=== PATIENT | male | born 1950 | race Caucasian/White ===

== ENCOUNTER 2019-10-20 10:37 | Day surgery (SDC) | payer OTHER ==
[2019-10-19 15:46] VITALS: BMI 18.7
[2019-10-20] MEDS ORDERED: AFRIN NASAL MIST 15 ML BOT ONE (12:12)
[2019-10-20] MEDS ORDERED: Lidocaine 1% w/Epinephrine 1:100K 20 ML VIAL ONE (12:23)
[2019-10-20] MEDS ORDERED: EPINEPHrine 1 MG/ML AMP ONE (12:23)
[2019-10-20] MEDS ORDERED: Fentanyl 100 MCG/2 ML VIAL ONE (12:29)
[2019-10-20 12:41] LABS: Hemoglobin 14.3 g/dL (14.0-18.0); Platelet Count 242 thou/uL (130-400)
[2019-10-20 13:01] LABS: Anion Gap 12 mmol/L (10-20); BUN (Urea Nitrogen) 17 mg/dL (8.4-25.7); Calc. Creatinine Clearance 75 mL/min (70-130); Calcium 9.4 mg/dL (7.8-10.44); Carbon Dioxide 28 mmol/L (23-31); Chloride 103 mmol/L (98-107); Estimated GFR-MDRD 84; Glucose 91 mg/dL (80-115); Sodium 139 mmol/L (136-145)
[2019-10-20] MEDS ORDERED: PROPOFOL 200 MG/20 ML VIAL ONE (14:47)
[2019-10-20] MEDS ORDERED: Lidocaine 1% PF 5 ML VIAL ONE (14:47)
[2019-10-20] MEDS ORDERED: ePHEDrine/0.9% NaCl/PF SYRINGE 50 mg/10 ml ONE (14:47)
[2019-10-20] MEDS ORDERED: Ondansetron PF 4 MG/2 ML Vial ONE (14:47)
[2019-10-20] MEDS ORDERED: Dexamethasone 20 MG/5 ML VIAL ONE (14:47)
[2019-10-20] MEDS ORDERED: HYDROcodone/Acetaminophen 5/325 mg Tablet ONE (14:48)
--- NOTE | 2019-10-21 09:53 | OP ---
DATE OF PROCEDURE: 10/20/2019 PREOPERATIVE DIAGNOSES: 1. Chronic maxillary sinusitis. 2. Chronic right frontal sinusitis. 3. Right frontal ethmoid mucocele. POSTOPERATIVE DIAGNOSES: 1. Chronic maxillary sinusitis. 2. Chronic right frontal sinusitis. 3. Right frontal ethmoid mucocele. PROCEDURES PERFORMED: 1. Nasal endoscopy with right maxillary antrostomy. 2. Nasal endoscopy with modified Loth[place] procedure, CPT code 68366. 3. Bilateral nasal endoscopy insertion of steroid-releasing frontal sinus stent. 4. Stereotactic image guidance using the Preact system. PROCEDURE IN DETAIL: After consent was obtained, the patient was identified, brought to the operating room and placed on the operating table in supine position. General endotracheal anesthesia was obtained. The patient was placed in supine position and prepared for surgery. Topical decongestion was achieved with infiltrating 1% lidocaine and 1:100,000 epinephrine, and topical adrenaline was placed in the anticipated site of incision and we intended the surgery. We then removed the topical adrenaline and proceeded with outfracturing the residual middle turbinate on the right and connected the natural os with the previous maxillary antrostomy. This was done to address recirculation problems and thickened mucus. 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 CT scan that actually revealed 2 separate sinuses opening of the right side and each of them had scarred down and was obstructed. Under stereotactic imaging guidance, we identified the opening to the more medial of the sinuses. The bone was quite thickened, and a sumeet-curved drill was used to take down the bony septa between the nasal cavity and the frontal sinus. This was then allowed for outpouring of the purulent contents. Once that septum was identified, we were then able to use the drill to take down the bony septa between the lateral frontal sinus, which was also obstructed. This then marsupialized the lateral sinus into the medial sinus and then ultimately into the nose. The efforts were made not to leave any shrouds of mucosa or bony debris, and a steroid-secreting stent was placed in the sinus cavity to prevent postoperative synechiae. Cultures were obtained. The patient was awakened, extubated, and taken to recovery room in a stable condition prior to discharge home. Job ID: [id number]
--- NOTE | 2019-10-25 10:27 | EKG ---
Test Reason : PREOP Blood Pressure : / mmHG Vent. Rate : 054 BPM Atrial Rate : 054 BPM P-R Int : 164 ms QRS Dur : 108 ms QT Int : 430 ms P-R-T Axes : 085 099 077 degrees QTc Int : 407 ms Sinus bradycardia Rightward axis Borderline ECG No previous ECGs available Confirmed by KIANA BARDALES (2) on 10/25/2019 10:26:42 AM Referred By: SINGH Confirmed By:KIANA BARDALES
== END 2019-10-20 15:56 | disposition home or self-care (01) ==
LOC: SDC 10:37
PROVIDERS: ATTEND Specialist
PROC: 09BS8ZZ Excision of Right Frontal Sinus, Via Natural or Artificial Opening Endoscopic (ICD-10-PCS; principal; 2019-10-20)
PROC: 099S8ZZ Drainage of Right Frontal Sinus, Via Natural or Artificial Opening Endoscopic (ICD-10-PCS; principal; 2019-10-20)
PROC: 099Q8ZZ Drainage of Right Maxillary Sinus, Via Natural or Artificial Opening Endoscopic (ICD-10-PCS; principal; 2019-10-20)
PROC: 8E09XBZ Computer Assisted Procedure of Head and Neck Region (ICD-10-PCS; principal; 2019-10-20)
DX: J32.8 Other chronic sinusitis (principal); J34.1 Cyst and mucocele of nose and nasal sinus; Z79.899 Other long term (current) drug therapy; Z88.0 Allergy status to penicillin; Z88.1 Allergy status to other antibiotic agents
CPT/HCPCS: 80048; 85014; 85018; 85049; 87070; 87076; 87205; 93005; 93010; J0171; J1100; J2001; J2405; J2704; J3010